=== PATIENT | female | born 1990 | race American Indian/Alaskan Native ===

== ENCOUNTER 2017-10-29 07:39 | Outpatient (CLI) | payer OTHER | END 2017-10-29 08:38 | disposition home or self-care (01) | LOC: NST 07:39 | DX: Z34.03 Encounter for supervision of normal first pregnancy, third trimester (principal) ==

== ENCOUNTER 2017-11-19 10:30 | Inpatient (IN) | payer OTHER ==
[~2017-11-19] VITALS: Ht 167.6 cm; Wt 71.2 kg
== END 2017-12-06 14:17 | DRG 775 ==
LOC: LDR 12-04 06:18 → OB/GYN 12-04 10:05 → LDR 12-08 10:30 → OB/GYN 12-08 10:30
PROC: 10E0XZZ Delivery of Products of Conception, External Approach (ICD-10-PCS; principal; 2017-12-04)
PROC: 0W8NXZZ Division of Female Perineum, External Approach (ICD-10-PCS; 2017-12-04)
PROC: 10907ZC Drainage of Amniotic Fluid, Therapeutic from Products of Conception, Via Natural or Artificial Opening (ICD-10-PCS; 2017-12-04)
PROC: 4A1HXCZ Monitoring of Products of Conception, Cardiac Rate, External Approach (ICD-10-PCS; 2017-12-04)
DX: O69.89X0 Labor and delivery complicated by other cord complications, not applicable or unspecified (principal); Z3A.39 39 weeks gestation of pregnancy; Z37.0 Single live birth

== ENCOUNTER 2017-12-03 09:35 | Outpatient (CLI) | payer OTHER | END 2017-12-03 10:34 | disposition home or self-care (01) | LOC: NST 09:35 | DX: Z34.03 Encounter for supervision of normal first pregnancy, third trimester (principal); Z3A.39 39 weeks gestation of pregnancy ==

== ENCOUNTER 2019-06-14 12:34 | Outpatient (CLI) | payer OTHER | END 2019-06-14 15:46 | disposition home or self-care (01) | LOC: EDBD 12:34 → NST 12:34 | DX: Z34.83 Encounter for supervision of other normal pregnancy, third trimester (principal) ==

== ENCOUNTER 2019-06-14 16:51 | Inpatient (IN) | payer OTHER ==
[~2019-06-14] VITALS: Ht 167.6 cm; Wt 73.5 kg
[2019-06-29] MEDS ORDERED: PRENATAL TABLE1 EAC1 PO (08:55)
== END 2019-07-01 13:32 | disposition home or self-care (01) | DRG 807 ==
LOC: LDR 06-29 07:26 → OB/GYN 06-29 07:26 → EDBD 06-29 14:15 → OB/GYN 07-01 13:32
PROVIDERS: ADMIT Obstetrics & Gynecology Maternal & Fetal Medicine
PROC: 10E0XZZ Delivery of Products of Conception, External Approach (ICD-10-PCS; principal; 2019-06-29)
PROC: 0KQM0ZZ Repair Perineum Muscle, Open Approach (ICD-10-PCS; 2019-06-29)
PROC: 0UQMXZZ Repair Vulva, External Approach (ICD-10-PCS; 2019-06-29)
PROC: 4A1HXCZ Monitoring of Products of Conception, Cardiac Rate, External Approach (ICD-10-PCS; 2019-06-29)
DX: O70.1 Second degree perineal laceration during delivery (principal); O71.82 Other specified trauma to perineum and vulva; Z37.0 Single live birth; Z3A.37 37 weeks gestation of pregnancy; Z22.330 Carrier of Group B streptococcus

== ENCOUNTER 2019-06-27 08:09 | Outpatient (CLI) | payer OTHER | END 2019-06-27 10:58 | disposition home or self-care (01) | LOC: NST 08:09 | DX: Z34.83 Encounter for supervision of other normal pregnancy, third trimester (principal) ==

== ENCOUNTER 2023-04-24 11:32 | Outpatient (CLI) | payer OTHER ==
[~2023-04-24 11:32] MED LIST: PRENATAL TABLE1 EAC1 PO
== END 2023-04-24 12:46 | disposition home or self-care (01) ==
LOC: NST 11:32
PROVIDERS: ATTEND Obstetrics & Gynecology Maternal & Fetal Medicine
DX: Z34.83 Encounter for supervision of other normal pregnancy, third trimester (principal)

== ENCOUNTER 2023-05-29 12:14 | Outpatient (CLI) | payer OTHER | END 2023-05-29 12:52 | disposition home or self-care (01) | LOC: NST 12:14 | PROVIDERS: ATTEND Obstetrics & Gynecology Maternal & Fetal Medicine | DX: Z34.83 Encounter for supervision of other normal pregnancy, third trimester (principal) ==

== ENCOUNTER 2023-06-17 07:33 | Inpatient (IN) | payer OTHER ==
[~2023-06-17] VITALS: Ht 167.6 cm; Wt 79.4 kg
[2023-06-17] MEDS ORDERED: LABETALOL 11 MG/1 ML PO (09:09)
[2023-06-17 09:11] LABS: HEMATOCRIT 33.7 % (36.0-45.00); HEMOGLOBIN 11.4 g/dL (12.0-15.00); MEAN CELL VOLUME 88.4 fL (80.00-100.00); MEAN CORPUSCULAR HEMOGLOBIN 29.9 pg (27.00-32.0); MEAN CORPUSCULAR HGB CONC 33.8 g/dl (32.0-36.0); PLATELET COUNT 191 K/uL (150-450); RED BLOOD COUNT 3.81 M/uL (4.00-6.00); RED CELL DISTRIBUTION WIDTH 14.5 % (11.5-14.5)
[2023-06-17 10:01] LABS: INR 0.94; PARTIAL THROMBOPLASTIN TIME 30.1 SECONDS (22.0-34.0)
[2023-06-17 10:05] LABS: ALBUMIN 2.9 gm/dL (3.4-5.0); BILIRUBIN TOTAL 0.61 mg/dL (0.3-1.2); CALCIUM 8.7 mg/dL (8.5-10.1); CREATININE SERUM 0.5 mg/dL (0.55-1.02); GFR 140.4; GLOBULINA 3.4 G/DL (2.4-3.5); POTASSIUM 4.32 mEq/L (3.5-5.1); TOTAL PROTEIN 6.3 gm/dL (6.4-8.2)
[2023-06-17 10:12] LABS: PROTHROMBIN TIME 9.9 SECONDS (9.0-11.5)
[2023-06-18 08:03] LABS: HEMATOCRIT 27.2 % (36.0-45.00); MEAN CELL VOLUME 87.5 fL (80.00-100.00); MEAN CORPUSCULAR HEMOGLOBIN 30.2 pg (27.00-32.0); MEAN CORPUSCULAR HGB CONC 34.5 g/dl (32.0-36.0); RED BLOOD COUNT 3.11 M/uL (4.00-6.00); RED CELL DISTRIBUTION WIDTH 14.3 % (11.5-14.5)
[2023-06-18 08:07] LABS: HEMOGLOBIN 9.4 g/dL (12.0-15.00)
[2023-06-18 08:08] LABS: PLATELET COUNT 139 K/uL (150-450)
== END 2023-06-19 14:42 | disposition home or self-care (01) | DRG 807 ==
LOC: LDR 07:33 → OB/GYN 11:15
PROVIDERS: Obstetrics & Gynecology Gynecology; ADMIT Obstetrics & Gynecology Maternal & Fetal Medicine; ATTEND Obstetrics & Gynecology Maternal & Fetal Medicine
PROC: 10E0XZZ Delivery of Products of Conception, External Approach (ICD-10-PCS; principal; 2023-06-17)
PROC: 0KQM0ZZ Repair Perineum Muscle, Open Approach (ICD-10-PCS; 2023-06-17)
PROC: 4A1HXCZ Monitoring of Products of Conception, Cardiac Rate, External Approach (ICD-10-PCS; 2023-06-17)
DX: O70.1 Second degree perineal laceration during delivery (principal); Z37.0 Single live birth; Z3A.37 37 weeks gestation of pregnancy; Z20.822 Contact with and (suspected) exposure to COVID-19